=== PATIENT | male | born 1950 | race Caucasian/White ===

== ENCOUNTER 2021-02-02 14:59 | Inpatient (IN) | payer MEDICARE, BC ==
[~2021-02-02] VITALS: Ht 182.9 cm; Wt 72.1 kg
[2021-02-02] MEDS ORDERED: ACET-2154 PO (15:16)
[2021-02-02] MEDS ORDERED: BUSP15TA3 PO (15:16)
[2021-02-02] MEDS ORDERED: ALPR0.5T8 PO (15:16)
[2021-02-02] MEDS ORDERED: ESCI20TA PO (15:16)
[2021-02-02] MEDS ORDERED: ONDA4TAB5 PO (15:16)
[2021-02-02] MEDS ORDERED: MAG30ORA PO (15:16)
[2021-02-02] MEDS ORDERED: LISI10TA29 PO (15:16)
[2021-02-02] MEDS ORDERED: MAGN400O6 PO (15:16)
[2021-02-02] MEDS ORDERED: ALBU8.5H8 IH (15:16)
[2021-02-02] MEDS ORDERED: FLUT16SP16 EA NOSTRIL (15:16)
[2021-02-02] MEDS ORDERED: DOCU-141 PO (15:16)
[2021-02-02] MEDS ORDERED: OLAN2.5T3 PO (15:16)
--- NOTE | 2021-02-02 15:30 | NUR ---
patient was seen by MD. He is awake and alert. He is sitting up eating a sandwich. Covid swab sent to lab
[2021-02-02 15:43] LABS: BASOPHILS # (AUTO) 0.1 K/uL (0.0-8.0); BASOPHILS % (AUTO) 0.8 % (0.0-2.0); EOSINOPHILS # (AUTO) 0.3 K/uL (0.0-0.7); EOSINOPHILS % (AUTO) 4.2 % (0.0-7.0); HEMATOCRIT 40.5 % (36.7-47.1); HEMOGLOBIN 13.7 g/dL (12.5-16.3); LYMPHOCYTES # (AUTO) 1.7 K/uL (20.0-40.0); LYMPHOCYTES % (AUTO) 26.6 % (20.5-51.5); MEAN CORPUSCULAR HGB CONC 34 g/dL (32.5-36.3); MEAN CORPUSCULAR VOLUME 88.5 fL (73.0-96.2); MONOCYTES # (AUTO) 0.6 K/uL (2.0-10.0); MONOCYTES % (AUTO) 9.3 % (0.0-11.0); NEUTROPHILS # (AUTO) 3.8 K/uL (1.8-8.9); NEUTROPHILS % (AUTO) 59.1 % (38.5-71.5); PLATELET COUNT (AUTO) 273 K/uL (152-348); RED BLOOD CELL COUNT(AUTO) 4.58 MIL/uL (4.06-5.63); WHITE BLOOD COUNT (AUTO) 6.5 K/uL (3.6-10.2)
[2021-02-02 15:48] LABS: CARBON DIOXIDE 30 mmol/L (21-32); CHLORIDE 101 mmol/L (98-107); CREATININE 0.9 mg/dL (0.6-1.3); GLUCOSE 106 mg/dL (74-106); POTASSIUM 4.2 mmol/L (3.5-5.1); UREA NITROGEN, BLOOD 13 mg/dL (7-18)
[2021-02-02 15:53] LABS: ETHANOL < 3 MG/DL (0-0)
[2021-02-02 15:54] LABS: ALANINE AMINOTRANSFERASE 12 U/L (16-63); ALKALINE PHOSPHATASE 76 U/L (50-136); ASPARTATE AMINOTRANSFERASE 8 U/L (15-37); BILIRUBIN,DIRECT 0.1 mg/dL (0.0-0.2); BILIRUBIN,TOTAL 0.3 mg/dL (0.2-1.0); TOTAL PROTEIN, SERUM 6.9 g/dL (6.4-8.2)
[2021-02-02 15:56] LABS: ACETAMINOPHEN < 2.0 ug/mL (10-30)
[2021-02-02 16:00] VITALS: BP 111/65
--- NOTE | 2021-02-02 16:30 | NUR ---
Art from Crisis team for evaluation of patient
--- NOTE | 2021-02-02 17:17 | NUR ---
Hand off report given to William OCAMPO. Patient is aware of pending admission to hospital
[2021-02-02] MEDS ORDERED: BLOOD SUGAR DIAGNOSTIC 1 EACH STRIP VI ONE (18:30)
[2021-02-02] MEDS ORDERED: TEMAZEPAM 7.5 MG CAPSULE PO PRN (18:30)
[2021-02-02] MEDS ORDERED: MAG HYDROX/AL HYDROX/SIMETH 30 ML LIQUID UDC PO PRN ×2 (18:30→20:00)
[2021-02-02] MEDS ORDERED: ACETAMINOPHEN 325 MG TABLET PO PRN ×2 (18:30→20:00)
[2021-02-02] MEDS ORDERED: MAGNESIUM HYDROXIDE 30 ML LIQUID UDC PO PRN ×2 (18:30→20:00)
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
[2021-02-02] MEDS ORDERED: ALBUTEROL SULFATE 8 GM HFA.AER.AD IH PRN (20:00)
[2021-02-02] MEDS ORDERED: ONDANSETRON HCL 4 MG TABLET PO PRN (20:00)
[2021-02-02] MEDS: LORAZEPAM 0.5 MG TABLET PO PRN (20:13)
[2021-02-02] MEDS ORDERED: ALBUTEROL SULFATE 2.5 MG/3 ML NEBU INH PRN (20:30)
[2021-02-02 20:48] VITALS: BP 107/69
--- NOTE | 2021-02-03 06:31 | NUR ---
Patient slept a total of 7.30 hours.
[2021-02-03 07:30] VITALS: BP 110/67
[2021-02-03] MEDS: DOCUSATE SODIUM 100 MG CAPSULE PO SCH (08:57)
[2021-02-03] MEDS: LISINOPRIL 10 MG TABLET PO SCH (08:57)
[2021-02-03] MEDS: LORAZEPAM 0.5 MG TABLET PO PRN (09:01)
[2021-02-03 16:00] VITALS: BP 99/57
[2021-02-03] MEDS: GLUCERNA SHAKE VANILLA 237 ML CAN PO SCH (16:12)
[2021-02-03] MEDS ORDERED: GLUCERNA SHAKE VANILLA 237 ML CAN PO SCH (17:00)
[2021-02-03 20:00] VITALS: BP 93/56
--- NOTE | 2021-02-04 06:03 | NUR ---
Received patient at the beginning of the shift complaining about everything. This ticket writer attempted to address some of his issues but the patient was noncompliant and not willing to even try. PRN medications were offered and refused. Some delusional and paranoid statements were made to the ticket writer r/e the situation of being a patient here. Total sleep hour were 8.45. Continuing to monitor the patient for SI and unpredictable behaviors.
[2021-02-04] MEDS: LISINOPRIL 10 MG TABLET PO SCH (08:25)
[2021-02-04] MEDS: DOCUSATE SODIUM 100 MG CAPSULE PO SCH (08:25)
[2021-02-04] MEDS: GLUCERNA SHAKE VANILLA 237 ML CAN PO SCH ×2 (08:26→17:35)
[2021-02-04] MEDS: LORAZEPAM 0.5 MG TABLET PO PRN ×2 (08:29→23:36)
[2021-02-04 08:30] VITALS: BP 99/61
--- NOTE | 2021-02-04 08:51 | NUR ---
Received pt. in bed, AAOx4. vitals stable no c/of pain, compliant with medications and nursing care. Patient seen by public relations studies director and questioned why his not on antipsychotics. Pt. educated by public relations studies director. Will continue with care plan.
[2021-02-04] MEDS ORDERED: INSULIN REGULAR, HUMAN 300 UNIT/3 ML VIAL SQ PRN (10:45)
[2021-02-04] MEDS ORDERED: DEXTROSE 50% 50 ML DISP.SYRIN IV PRN (10:45)
[2021-02-04] MEDS: BLOOD SUGAR DIAGNOSTIC 1 EACH STRIP VI SCH ×3 (11:35→20:32)
[2021-02-04 20:23] VITALS: BP 101/64
[2021-02-04] MEDS: OLANZAPINE 5 MG TABLET PO SCH (23:36)
--- NOTE | 2021-02-05 05:39 | NUR ---
This patient continues to be angry and irritate with most aspects of this unit. This includes the bed, the food , the doctors, the unit rules and the other patients. The psychiatrist saw the patient and ordered medications. This patient is paranoid and has delusions . Total sleep hours were 6.30 and the patient is refusing to take a shower today.Despite multiple attempts to get to the root of the anger and discontent , this health technical writer was unsuccessful. Continuing with the plan of care. Will endorse to the oncoming shift.
[2021-02-05] MEDS: BLOOD SUGAR DIAGNOSTIC 1 EACH STRIP VI SCH ×4 (06:25→21:36)
[2021-02-05 07:30] VITALS: BP 102/62
[2021-02-05] MEDS ORDERED: ESCITALOPRAM OXALATE 10 MG TABLET PO SCH (09:00)
[2021-02-05] MEDS ORDERED: BISACODYL 5 MG TABLET.DR PO ONE (09:15)
[2021-02-05] MEDS ORDERED: FLEET ENEMA 133 ML BOTTLE RC PRN (09:15)
[2021-02-05] MEDS: LISINOPRIL 10 MG TABLET PO SCH (09:23)
[2021-02-05] MEDS: DOCUSATE SODIUM 100 MG CAPSULE PO SCH (09:23)
[2021-02-05] MEDS: OLANZAPINE 5 MG TABLET PO SCH (09:23)
[2021-02-05] MEDS: GLUCERNA SHAKE VANILLA 237 ML CAN PO SCH ×2 (09:24→17:07)
[2021-02-05] MEDS ORDERED: risperiDONE 1 MG TABLET PO SCH (10:00)
--- NOTE | 2021-02-05 11:18 | NUR ---
Initial Discharge Plan: Patient currently resides at [facility] ([phone]). Patient will return back to his SNF upon dc. Patient does not have any family at this time. This SW will work with the MD and treatment team to coordinate discharge plan.
--- NOTE | 2021-02-05 11:18 | NUR ---
Firearms Report: Fast Food Crew Lead completed and submitted a [employer] firearms report for 5150 grave disability certification. A copy of report has been placed in patient chart.
[2021-02-05] MEDS: risperiDONE 0.5 MG TABLET PO SCH (11:49)
--- NOTE | 2021-02-05 12:14 | NUR ---
SNF Contact: This SW spoke with Amber vences from [facility] ([phone]) who stated pt is welcomed back upon discharge.
--- NOTE | 2021-02-05 15:00 | NUR ---
SW Family Contact: This SW contacted patient's brother Jose M ([phone]) and left a detailed voicemail in regards to patient's discharge and treatment plan.
[2021-02-05 15:08] VITALS: BP 90/46
--- NOTE | 2021-02-05 15:28 | NUR ---
SW Individual Therapy: reinforcing iron worker helper met with patient for brief counseling to help address patients presenting problem paranoid thought content. Patient appeared paranoid and delusional stating that "I need shock therapy". Patient was not cooperative and was not listening while this SW was conducting therapy.
[2021-02-05] MEDS ORDERED: OLANZAPINE 2.5 MG TABLET PO SCH (17:00)
[2021-02-05] MEDS ORDERED: OLANZAPINE 5 MG TABLET PO SCH (17:00)
[2021-02-05] MEDS: risperiDONE 1 MG TABLET PO SCH (20:28)
[2021-02-05 20:31] VITALS: BP 98/56
--- NOTE | 2021-02-06 06:26 | NUR ---
PATIENT AWAKE IN BED. SLEPT WELL, 7.5HOURS. PT DID NOT HAVE BM THROUGHOUT THE NIGHT, WAS GIVEN DULCOLAX 2 TABS YESTERDAY. PATIENT REFUSED FOR PRN ENEMA. HIP HOP PERFORMERS NOTIFIED.
[2021-02-06] MEDS: BLOOD SUGAR DIAGNOSTIC 1 EACH STRIP VI SCH ×4 (06:31→20:25)
[2021-02-06 07:30] VITALS: BP 99/66
[2021-02-06] MEDS: DOCUSATE SODIUM 100 MG CAPSULE PO SCH (08:35)
[2021-02-06] MEDS: risperiDONE 0.5 MG TABLET PO SCH ×3 (08:35→17:33)
[2021-02-06] MEDS: LISINOPRIL 10 MG TABLET PO SCH (08:36)
[2021-02-06] MEDS: GLUCERNA SHAKE VANILLA 237 ML CAN PO SCH ×2 (08:36→17:33)
[2021-02-06] MEDS: DIVALPROEX 250 MG TABLET.DR PO SCH ×2 (09:11→17:29)
[2021-02-06] MEDS: BENZTROPINE MESYLATE 0.5 MG TABLET PO SCH ×2 (13:12→20:35)
[2021-02-06] MEDS: LORAZEPAM 0.5 MG TABLET PO PRN (14:47)
[2021-02-06 15:28] VITALS: BP 109/59
[2021-02-06 20:33] VITALS: BP 99/65
[2021-02-06] MEDS: risperiDONE 1 MG TABLET PO SCH (20:35)
[2021-02-07] MEDS: BLOOD SUGAR DIAGNOSTIC 1 EACH STRIP VI SCH ×6 (06:34→23:18)
[2021-02-07 07:30] VITALS: BP 93/55
[2021-02-07] MEDS: BENZTROPINE MESYLATE 0.5 MG TABLET PO SCH ×2 (08:00→20:22)
[2021-02-07] MEDS: risperiDONE 0.5 MG TABLET PO SCH (08:00)
[2021-02-07] MEDS: LISINOPRIL 10 MG TABLET PO SCH (08:00)
[2021-02-07] MEDS: DIVALPROEX 250 MG TABLET.DR PO SCH ×3 (08:00→16:54)
[2021-02-07] MEDS: GLUCERNA SHAKE VANILLA 237 ML CAN PO SCH ×2 (08:00→17:23)
[2021-02-07] MEDS: DOCUSATE SODIUM 100 MG CAPSULE PO SCH (08:00)
--- NOTE | 2021-02-07 12:30 | NUR ---
LUCY Individual Therapy: warehouse assembly worker met with patient for brief counseling to help address patient's presenting problem paranoid thought content. Patient appeared paranoid and delusional stating that he has cancer. Patient is fixated on different delusions everyday. LUCY unable to conduct therapy at this time.
--- NOTE | 2021-02-07 14:21 | NUR ---
LUCY Individual Therapy: freezing room worker met with patient for brief counseling to help address patients presenting problem paranoid thought content. Patient appeared paranoid and delusional stating that "the mattress on my bed is not fitted, can you give me a screw auto haulaway driver so I can fix it". Patient was fixated on her bed and was unable to have a proper conversation at this time due to her paranoia. LUCY unable to conduct therapy at this time. Addendum: 02/07/21 at 1423 by LUCY FOWLER Wrong patient
--- NOTE | 2021-02-07 14:23 | NUR ---
LUCY Individual Therapy: plant and equipment worker met with patient for brief counseling to help address patients presenting problem paranoid thought content. Patient appeared withdrawn and isolative. Patient did not want to engage or have a conversation at this time. Patient wanted to sleep. Unable to conduct therapy at this time.
--- NOTE | 2021-02-07 14:26 | NUR ---
SW Family Contact: This SW attempted to call patient's brother Jose M second time ([phone]) to discuss treatment and discharge plan. This SW left a detailed voicemail and requested for him to contact this SW directly if he had questions about discharge and facility.
[2021-02-07 16:00] VITALS: BP 98/64
[2021-02-07] MEDS: risperiDONE 1 MG TABLET PO SCH (16:54)
--- NOTE | 2021-02-07 16:57 | NUR ---
patient refused blood sugar check. patient states that he would "rather wait for the night check" and he states that "4 times a day is too much". patient provided with education about importance of blood sugar monitoring for diabetes management, but he continues to refuse. patient is resting quietly in his assigned bed. he is showing no s/s of hypo/hyperglycemia.
[2021-02-07] MEDS ORDERED: risperiDONE 0.5 MG TABLET PO SCH (17:00)
[2021-02-07] MEDS ORDERED: risperiDONE 2 MG TABLET PO SCH (21:00)
[2021-02-07] MEDS ORDERED: risperiDONE 1 MG TABLET PO SCH (21:00)
[2021-02-07 23:09] VITALS: BP 103/78
--- NOTE | 2021-02-08 04:05 | NUR ---
SNF Referral: This SW faxed patient's clinicals to gonzalez Anderson from [facility] ([phone]) stated they cannot accept pt due to behavioral issue.
--- NOTE | 2021-02-08 06:32 | NUR ---
GPS: Pt.slept for 7.45 last night. Refused blood sugar check at this time despite explanation of risks vs benefits x3. No signs/symptoms of glycemic reactions noted. Re-directed and re-assured prn. Denies AH/VH. Will continue to monitor.
[2021-02-08] MEDS: BLOOD SUGAR DIAGNOSTIC 1 EACH STRIP VI SCH ×2 (06:39→11:42)
[2021-02-08 07:30] VITALS: BP 93/55
[2021-02-08] MEDS: risperiDONE 1 MG TABLET PO SCH (08:43)
[2021-02-08] MEDS: BENZTROPINE MESYLATE 0.5 MG TABLET PO SCH (08:43)
[2021-02-08] MEDS: DOCUSATE SODIUM 100 MG CAPSULE PO SCH (08:43)
[2021-02-08] MEDS: DIVALPROEX 250 MG TABLET.DR PO SCH ×3 (08:43→16:48)
[2021-02-08] MEDS: LISINOPRIL 10 MG TABLET PO SCH (08:44)
[2021-02-08] MEDS: GLUCERNA SHAKE VANILLA 237 ML CAN PO SCH ×2 (08:44→17:51)
--- NOTE | 2021-02-08 10:50 | NUR ---
SNF Referral: This SW faxed patient's clinicals to Nae Black from [facility] ([phone]) for possible placement option.
--- NOTE | 2021-02-08 11:48 | NUR ---
Court Hearing: Patient's court hearing for 5240 was today and it was upheld for GD.
--- NOTE | 2021-02-08 11:56 | NUR ---
SNF Contact: This SW received a call from Skyla Black from [facility] ([phone]) who stated that they cannot accept pt due to behavioral issues.
--- NOTE | 2021-02-08 12:21 | NUR ---
SNF Referral: This SW faxed patient's clinicals to Kathleen Black from [facility] ([phone]) for possible placement option.
--- NOTE | 2021-02-08 12:27 | NUR ---
SNF Referral: This SW faxed patient's clinicals to gonzalez Anderson from [facility] ([phone]) for possible placement option.
[2021-02-08] MEDS: FLUOXETINE HCL 20 MG CAPSULE PO SCH (13:29)
--- NOTE | 2021-02-08 14:43 | NUR ---
SNF Contact: This SW spoke with Kathleen Black from [facility] ([phone]) who stated that they cannot accept pt because of his past suicide attempt and they stated that pt does not have medicare days.
[2021-02-08 16:42] VITALS: BP 90/59
[2021-02-08] MEDS: ARIPIPRAZOLE 5 MG TABLET PO SCH ×2 (16:44→20:32)
[2021-02-08 20:17] VITALS: BP 94/55
--- NOTE | 2021-02-08 21:41 | NUR ---
awake alert and oriented x4 Patient depressed. Compliant with meds. Tolerated po meds well. No acute distress noted. VSS. Attended to needs. Continent of bowel and bladder. Will monitor patient. No signs of agitation nor any behavioral issues noted.
[2021-02-09 07:30] VITALS: BP 93/52
[2021-02-09] MEDS: ARIPIPRAZOLE 5 MG TABLET PO SCH ×3 (08:19→20:33)
[2021-02-09] MEDS: DOCUSATE SODIUM 100 MG CAPSULE PO SCH (08:19)
[2021-02-09] MEDS: DIVALPROEX 250 MG TABLET.DR PO SCH ×3 (08:19→16:34)
[2021-02-09] MEDS: LISINOPRIL 10 MG TABLET PO SCH (08:20)
[2021-02-09] MEDS: GLUCERNA SHAKE VANILLA 237 ML CAN PO SCH ×2 (08:20→16:34)
--- NOTE | 2021-02-09 09:54 | NUR ---
seen and examined by Dr. Jung , with orders to monitor patients BP , patient BP was usually below normal with last bp taken at 93/54, MD made aware, will continue follow up
--- NOTE | 2021-02-09 11:02 | NUR ---
SW Family Contact: This SW attempted to call patient's brother Jose M ([phone]) and left a detailed voicemail that patient is not accepted at any other nursing facility due to behavioral issues. This SW reported that this public relations writer faxed patient's clinicals to three nursing facilities; [facility], [facility], and [facility] have all denied him due to behavioral issues. This SW stated that pt was at [facility] prior to admission here at [facility] and once stable pt will return back.
--- NOTE | 2021-02-09 11:41 | NUR ---
SW Family Contact: This SW attempted to call patient's brother Jose M ([phone]), however, it goes to straight voicemail every time this SW attempts to contact. This SW has left him multiple voicemails.
[2021-02-09] MEDS: FLUOXETINE HCL 20 MG CAPSULE PO SCH (12:03)
--- NOTE | 2021-02-09 12:16 | NUR ---
assisted patient to get cellphone number from valuables, patient able to get the number that he needed and return valuables to the safe
--- NOTE | 2021-02-09 12:18 | NUR ---
patient last blood pressure at 1200 is at 125/75
[2021-02-09 12:19] VITALS: BP 125/75
--- NOTE | 2021-02-09 14:29 | NUR ---
LUCY Individual Therapy: pull worker met with patient for brief counseling to help address patients presenting problem paranoid thought content. Patient appeared very paranoid and delusional. He was stating that he needs to go to the bank and that he needs to take his money out. Patient was unable to focus and he kept changing subjects. Patient kept stating that he needs "shock therapy". SW unable to conduct therapy at this time due to his paranoia.
[2021-02-09 16:52] VITALS: BP 110/64
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
[2021-02-09 20:15] VITALS: BP 101/57
[2021-02-10 00:39] VITALS: BP 103/64
[2021-02-10 04:00] VITALS: BP 101/64
--- NOTE | 2021-02-10 05:48 | NUR ---
GPS: Remain calm and cooperative with meds and care. Pt.slept for 6 hrs through the night. Re-directed and re-assured prn. Denies AH/VH. resting in bed comfortably. continue plan of care.Will continue to monitor.
[2021-02-10] MEDS: DIVALPROEX 250 MG TABLET.DR PO SCH ×3 (08:13→20:10)
[2021-02-10] MEDS: DOCUSATE SODIUM 100 MG CAPSULE PO SCH (08:13)
[2021-02-10] MEDS: ARIPIPRAZOLE 5 MG TABLET PO SCH ×3 (08:13→16:54)
[2021-02-10 08:29] VITALS: BP 101/63
[2021-02-10] MEDS: LISINOPRIL 10 MG TABLET PO SCH (08:44)
[2021-02-10] MEDS: GLUCERNA SHAKE VANILLA 237 ML CAN PO SCH ×2 (08:44→16:54)
[2021-02-10] MEDS: FLUOXETINE HCL 20 MG CAPSULE PO SCH (12:01)
--- NOTE | 2021-02-10 13:32 | NUR ---
Received patient AOx3, patient calm and cooperative, redirectable, compliant with medication,, patient delusional and paranoid, mentally preoccupied patient has constant anxiety and delusional thoughts of somebody will harm him , assisted with ADL, denies SI and HI, patient isolative , monitored [id number] for safety and elopement risk, no sign of distress at this time
[2021-02-10] MEDS: LORAZEPAM 0.5 MG TABLET PO PRN (14:07)
[2021-02-10 16:19] VITALS: BP 108/63
[2021-02-10 20:00] VITALS: BP 102/69
[2021-02-10] MEDS: ARIPIPRAZOLE 10 MG TABLET PO SCH (20:02)
--- NOTE | 2021-02-10 20:10 | NUR ---
patient refused Depakote 250 mg po.
[2021-02-10 23:56] VITALS: BP 94/60
--- NOTE | 2021-02-11 06:03 | NUR ---
GPS: Remain calm and cooperative with meds and care. Pt.slept for 4 hrs through the night After given restoril 7.5 mg po given for sleep. took shower this morning. Re-directed and re-assured prn. Denies AH/VH. resting in bed comfortably. continue plan of care.Will continue to monitor.
[2021-02-11 07:30] VITALS: BP 113/71
[2021-02-11] MEDS: ARIPIPRAZOLE 5 MG TABLET PO SCH ×3 (08:11→17:20)
[2021-02-11] MEDS: DOCUSATE SODIUM 100 MG CAPSULE PO SCH (08:12)
[2021-02-11] MEDS: DIVALPROEX 250 MG TABLET.DR PO SCH ×2 (08:12→21:10)
[2021-02-11] MEDS: LISINOPRIL 10 MG TABLET PO SCH (08:13)
[2021-02-11] MEDS: GLUCERNA SHAKE VANILLA 237 ML CAN PO SCH ×2 (08:14→17:21)
[2021-02-11] MEDS: FLUOXETINE HCL 20 MG CAPSULE PO SCH (12:17)
[2021-02-11 15:15] VITALS: BP 91/46
--- NOTE | 2021-02-11 18:37 | NUR ---
received pt compliant with medications.guarded isolative and withdrawn No aggressive behavior noted. re-directed as needed. Denies AH/VH when asked. Safe environment provided.
[2021-02-11 20:20] VITALS: BP 112/68
--- NOTE | 2021-02-11 20:30 | NUR ---
RECEIVED PATIENT IN HIS ROOM IN BED SLEEPING, BUT EASILY AROUSABLE. HE IS NOTED A/O X 2. CONTINUE WITHDRAWN AND ISOLATIVE. DENIED SI/HI/VH/AH, HE IS ABLE TO VERBALLY CFS. SAFETY AND FALL PRECAUTION IN PLACE. V/S STABLE. HE IS REASSURED FOR HIS SAFETY. WILL CONTINUE TO MONITOR.
[2021-02-11] MEDS: ARIPIPRAZOLE 10 MG TABLET PO SCH (21:10)
[2021-02-12 07:30] VITALS: BP 91/55
[2021-02-12] MEDS: ARIPIPRAZOLE 5 MG TABLET PO SCH ×3 (08:25→17:31)
[2021-02-12] MEDS: DOCUSATE SODIUM 100 MG CAPSULE PO SCH (08:25)
[2021-02-12] MEDS: LISINOPRIL 10 MG TABLET PO SCH (08:26)
[2021-02-12] MEDS: GLUCERNA SHAKE VANILLA 237 ML CAN PO SCH ×2 (08:27→17:27)
--- NOTE | 2021-02-12 08:45 | NUR ---
pt alert and oriented x 3. Pt ambulatory with good gait. Pt cooperative on taking his pills. Pt denies any SI.
--- NOTE | 2021-02-12 09:00 | NUR ---
Pt refused blood draw ordered by . Explained to pt purpose of the blood draw but pt insist on refusing.
[2021-02-12] MEDS: FLUOXETINE HCL 20 MG CAPSULE PO SCH (12:43)
[2021-02-12 15:18] VITALS: BP 96/54
--- NOTE | 2021-02-12 16:00 | NUR ---
Noticed pt withdrawn and very quiet and like to keep to himself. Did not wanna interact with any other patients even when approached.
--- NOTE | 2021-02-12 19:57 | NUR ---
RECEIVED PATIENT IN HIS ROOM IN BED. HE IS NOTED AWAKE A/O X 3. DEREJE TO VERBALIZED FEELINGS. HE APPEARS DEPRESSED, CONTINUE ISOLATIVE AND WITHDRAWN; DELUSIONAL THINKING GUARDED AT TIME. HOWEVER, HE DENIED SI/HI/VH/AH, HE IS ABLE TO VERBALLY CFS. PATIENT STATED, "I DON'T WANT TO HURT MYSELF OR , I AM JUST TIRED OF BEING HERE AND TAKING MEDICATIONS THAT MAKE ME SICK AND THE DOCTOR DOES NOT CARE". PATIENT WAS REASSURED AND REDIRECTED. TEACHING WAS PROVIDED ABOUT HIS MEDICATION REGIMENT. PATIENT WAS ALSO REASSURED FOR HIS SAFETY. V/S STABLE AT THIS TIME. SAFETY AND FALL PRECAUTION IN PLACE. PATIENT WAS GIVEN PO FLUIDS AND SNACKS. WILL CONTINUE TO MONITOR.
[2021-02-12 20:23] VITALS: BP 110/69
[2021-02-12] MEDS: DIVALPROEX 250 MG TABLET.DR PO SCH (20:39)
[2021-02-12] MEDS: ARIPIPRAZOLE 10 MG TABLET PO SCH ×2 (20:40→21:00)
--- NOTE | 2021-02-12 22:15 | NUR ---
patient refused Abilify 15mg PO QHS. he stated, "I don't want to take that medication; it makes me sick. I want to see another doctor". patient was informed of the importance to comply with medication regiment to improved his condition, yet refused. Will continue to monitor.
[2021-02-13 07:05] LABS: BASOPHILS # (AUTO) 0.1 K/uL (0.0-8.0); BASOPHILS % (AUTO) 0.6 % (0.0-2.0); EOSINOPHILS # (AUTO) 0.2 K/uL (0.0-0.7); EOSINOPHILS % (AUTO) 1.8 % (0.0-7.0); HEMOGLOBIN 13.2 g/dL (12.5-16.3); LYMPHOCYTES # (AUTO) 1.8 K/uL (20.0-40.0); LYMPHOCYTES % (AUTO) 20.7 % (20.5-51.5); MEAN CORPUSCULAR HEMOGLOBIN 29.9 uug (23.8-33.4); MEAN CORPUSCULAR HGB CONC 33 g/dL (32.5-36.3); MEAN CORPUSCULAR VOLUME 90.5 fL (73.0-96.2); MONOCYTES # (AUTO) 0.5 K/uL (2.0-10.0); MONOCYTES % (AUTO) 6.4 % (0.0-11.0); NEUTROPHILS # (AUTO) 5.9 K/uL (1.8-8.9); NEUTROPHILS % (AUTO) 70.5 % (38.5-71.5); PLATELET COUNT (AUTO) 246 K/uL (152-348); RED BLOOD CELL COUNT(AUTO) 4.42 MIL/uL (4.06-5.63); WHITE BLOOD COUNT (AUTO) 8.5 K/uL (3.6-10.2)
[2021-02-13 08:00] LABS: BILIRUBIN,TOTAL 0.5 mg/dL (0.2-1.0); MAGNESIUM 2.4 mg/dL (1.8-2.4); POTASSIUM 3.9 mmol/L (3.5-5.1); TOTAL PROTEIN, SERUM 6.9 g/dL (6.4-8.2)
[2021-02-13] MEDS: ARIPIPRAZOLE 5 MG TABLET PO SCH ×3 (08:00→16:52)
[2021-02-13 08:30] VITALS: BP 96/58
[2021-02-13] MEDS: GLUCERNA SHAKE VANILLA 237 ML CAN PO SCH ×2 (08:53→16:52)
[2021-02-13] MEDS: LISINOPRIL 10 MG TABLET PO SCH (08:53)
[2021-02-13] MEDS: DOCUSATE SODIUM 100 MG CAPSULE PO SCH (08:53)
--- NOTE | 2021-02-13 09:00 | NUR ---
PT refused abilify explained to pt purpose of medications but pt continues to refuse meds. Pt states that the Abilify makes him "weak and foggy."
--- NOTE | 2021-02-13 11:20 | NUR ---
SNF Contact: This SW received a phone call from Valeriy Black from [facility] ([phone]) who stated they reconsidered pt and they are willing to accept pt.
--- NOTE | 2021-02-13 11:40 | NUR ---
SW Note: This SW discussed discharge plan and stated that he got accepted to [facility] and pt prefers to go here instead of going back to [facility].
--- NOTE | 2021-02-13 11:41 | NUR ---
SW Family Contact: This SW contacted patient's brother Jose M ([phone]) and discussed discharge plan. Jose M mentioned that he was in [place] and he reported that he resides in [place] and is unable to help him as much as he could. This SW stated that pt is accepted at [facility] and he is agreeable of going to this facility.
[2021-02-13] MEDS: FLUOXETINE HCL 20 MG CAPSULE PO SCH (12:23)
[2021-02-13] MEDS ORDERED: FLUOXETINE HCL 20 MG CAPSULE PO SCH (13:00)
--- NOTE | 2021-02-13 13:53 | NUR ---
SW Individual Therapy: sheet ironworker met with patient for brief counseling to help address patients presenting problem paranoid thought content. Patient continues to present paranoid. However, patient appears to be withdrawn and depressed. This SW encouraged pt to participate in group or to interact with peers. Patient stated "I will". Patient stated he would want to rest and did not want to conduct therapy at this time.
[2021-02-13 16:08] VITALS: BP 90/54
--- NOTE | 2021-02-13 18:51 | NUR ---
Pt did not take any of his abilify this shift. Pt denies any SI and c/o pain. Addendum: 02/13/21 at 1853 by MARITZA CAREY RN Pt denies any hallucinations and states that he is NOT hearing any voices.
[2021-02-13] MEDS ORDERED: DIVALPROEX 250 MG TABLET.DR PO SCH (21:00)
[2021-02-13] MEDS: ARIPIPRAZOLE 10 MG TABLET PO SCH (21:03)
[2021-02-13 21:22] VITALS: BP 95/56
--- NOTE | 2021-02-14 06:29 | NUR ---
Patient no episodes of combative behavior.Denies hearing voices and hallucination.Slept about 5.15 hours.
[2021-02-14 07:30] VITALS: BP 92/54
[2021-02-14] MEDS: LISINOPRIL 10 MG TABLET PO SCH (09:00)
[2021-02-14] MEDS: ARIPIPRAZOLE 5 MG TABLET PO SCH ×3 (09:05→16:53)
[2021-02-14] MEDS: DOCUSATE SODIUM 100 MG CAPSULE PO SCH (09:06)
[2021-02-14] MEDS: GLUCERNA SHAKE VANILLA 237 ML CAN PO SCH ×2 (09:14→18:36)
[2021-02-14] MEDS ORDERED: LYTES/YERBA SANTA 240 ML BOTTLE MM PRN (09:45)
[2021-02-14] MEDS ORDERED: BISACODYL 5 MG TABLET.DR PO PRN (11:15)
[2021-02-14] MEDS: FLUOXETINE HCL 20 MG CAPSULE PO SCH (12:34)
[2021-02-14] MEDS ORDERED: FLUOXETINE HCL 20 MG CAPSULE PO SCH (13:00)
--- NOTE | 2021-02-14 13:22 | NUR ---
LUCY Individual Therapy: environmental services worker met with patient for brief counseling to help address patients presenting problem paranoid thought content. Patient presented to be less depressed. Patient was withdrawn in his room and covered in his blankets. LUCY encouraged pt to participate and interact. Pt refused to interact at this time.
[2021-02-14 16:00] VITALS: BP 100/71
[2021-02-14 20:12] VITALS: BP 99/67
[2021-02-14 20:30] VITALS: BP 105/76
[2021-02-14] MEDS: ARIPIPRAZOLE 10 MG TABLET PO SCH (20:37)
[2021-02-14] MEDS: DIVALPROEX 250 MG TABLET.DR PO SCH (20:37)
[2021-02-14] MEDS ORDERED: DIVALPROEX 250 MG TABLET.DR PO SCH (21:00)
[2021-02-14] MEDS ORDERED: DIVALPROEX 500 MG TABLET.DR PO SCH ×2 (21:00)
--- NOTE | 2021-02-15 06:16 | NUR ---
GPS: Remain calm and cooperative with meds and care. Pt.slept for 5.45 hrs through the night. Re-directed and re-assured prn. Denies AH/VH. resting in bed comfortably. continue plan of care.Will continue to monitor.
[2021-02-15 07:30] VITALS: BP 91/50
[2021-02-15] MEDS: LISINOPRIL 10 MG TABLET PO SCH (09:00)
[2021-02-15] MEDS: DOCUSATE SODIUM 100 MG CAPSULE PO SCH (10:00)
[2021-02-15] MEDS: ARIPIPRAZOLE 5 MG TABLET PO SCH ×3 (10:00→17:53)
[2021-02-15] MEDS: GLUCERNA SHAKE VANILLA 237 ML CAN PO SCH ×2 (10:01→17:54)
[2021-02-15] MEDS: FLUOXETINE HCL 20 MG CAPSULE PO SCH (12:59)
[2021-02-15 16:00] VITALS: BP 101/47
[2021-02-15 20:26] VITALS: BP 102/63
[2021-02-15] MEDS: ARIPIPRAZOLE 10 MG TABLET PO SCH (21:22)
[2021-02-15] MEDS: DIVALPROEX 250 MG TABLET.DR PO SCH (21:23)
[2021-02-16 07:30] VITALS: BP 98/54
--- NOTE | 2021-02-16 08:09 | NUR ---
LUCY Note: Patient will be discharged to shelter facility, [facility] [address] [place] [address]; ([phone]) via ambulance transportation at 2:30PM. community placement worker spoke with Valeriy Black ([phone]), and he confirmed that patient will be accepted at their facility today. Patients brother Jose M ([phone]) is aware and agreeable with discharge. Patient is alert and oriented x2. Patient is not able to plan for self-care at this time but is willing to accept care provided for his at the facility. Patient denies suicidal or homicidal ideation. Patient is aware and agreeable with discharge plans. Patient presents with appropriate mood and congruent affect. Patient will follow-up with (Psychiatrist) Dr. Jung and (Bulk Plant Manager) Dr. Flores [facility]. Patient presented with euthymic mood and congruent affect. Addendum: 02/16/21 at 1119 by LUCY FOWLER Discharge canceled due to pt not being stable per doctor Jung
[2021-02-16] MEDS: LISINOPRIL 10 MG TABLET PO SCH (09:00)
[2021-02-16] MEDS: GLUCERNA SHAKE VANILLA 237 ML CAN PO SCH ×2 (09:00→17:00)
[2021-02-16] MEDS: DOCUSATE SODIUM 100 MG CAPSULE PO SCH (09:38)
[2021-02-16] MEDS: ARIPIPRAZOLE 5 MG TABLET PO SCH ×3 (09:38→17:06)
--- NOTE | 2021-02-16 11:27 | NUR ---
SW Family Contact: This SW contacted patient's brother Jose M ([phone]) and left a voicemail that pt's discharge is canceled due to pt not being stable.
[2021-02-16] MEDS: FLUOXETINE HCL 20 MG CAPSULE PO SCH (14:01)
[2021-02-16 16:00] VITALS: BP 96/56
--- NOTE | 2021-02-16 20:00 | NUR ---
received patient in his room in bed. he is noted sleeping but easily arousable. he is noted a/o x 3 able to verbalized feelings. he is noted with low mood, appears depressed, affect is irritable. patient denied SI/HI//AH he is able to verbally CFS. He stated, "I feel depressed, but i don't want to or hurt myself". "I don't like my doctor, i feel she doesn't listen to me". patient was reassured and redirected. long talk. he is reassured for his safety. v/s stable, safety vand fall precaution in place. will continue to monitor.
[2021-02-16 20:22] VITALS: BP 101/59
[2021-02-16] MEDS: ARIPIPRAZOLE 10 MG TABLET PO SCH (20:57)
[2021-02-16] MEDS: DIVALPROEX 250 MG TABLET.DR PO SCH (20:57)
--- NOTE | 2021-02-17 06:10 | NUR ---
Patient slept for approx 6.15 hrs through the night. patient is able to comply with medication regiment. he required dome redirections and reassurance. will continue to monitor.
[2021-02-17 07:39] LABS: BASOPHILS % (AUTO) 0.7 % (0.0-2.0); EOSINOPHILS # (AUTO) 0.1 K/uL (0.0-0.7); EOSINOPHILS % (AUTO) 2.2 % (0.0-7.0); HEMATOCRIT 36.2 % (36.7-47.1); HEMOGLOBIN 12.4 g/dL (12.5-16.3); LYMPHOCYTES # (AUTO) 1.2 K/uL (20.0-40.0); LYMPHOCYTES % (AUTO) 23.9 % (20.5-51.5); MEAN CORPUSCULAR HEMOGLOBIN 30.4 uug (23.8-33.4); MEAN CORPUSCULAR HGB CONC 34 g/dL (32.5-36.3); MEAN CORPUSCULAR VOLUME 88.9 fL (73.0-96.2); MONOCYTES # (AUTO) 0.4 K/uL (2.0-10.0); MONOCYTES % (AUTO) 7.1 % (0.0-11.0); NEUTROPHILS # (AUTO) 3.4 K/uL (1.8-8.9); NEUTROPHILS % (AUTO) 66.1 % (38.5-71.5); PLATELET COUNT (AUTO) 217 K/uL (152-348); RED BLOOD CELL COUNT(AUTO) 4.07 MIL/uL (4.06-5.63); WHITE BLOOD COUNT (AUTO) 5.2 K/uL (3.6-10.2)
[2021-02-17 07:54] LABS: BILIRUBIN,TOTAL 0.4 mg/dL (0.2-1.0); CREATININE 0.7 mg/dL (0.6-1.3)
[2021-02-17] MEDS: ARIPIPRAZOLE 5 MG TABLET PO SCH ×4 (08:20→16:19)
[2021-02-17] MEDS: DOCUSATE SODIUM 100 MG CAPSULE PO SCH (08:20)
[2021-02-17] MEDS: LISINOPRIL 10 MG TABLET PO SCH (08:21)
[2021-02-17] MEDS: GLUCERNA SHAKE VANILLA 237 ML CAN PO SCH ×2 (08:21→17:31)
[2021-02-17 08:24] VITALS: BP 98/59
[2021-02-17] MEDS: FLUOXETINE HCL 20 MG CAPSULE PO SCH ×2 (12:31→13:00)
[2021-02-17 17:16] VITALS: BP 100/61
--- NOTE | 2021-02-17 18:40 | NUR ---
Patient awake in bed. Calm and cooperative. no signs of acute distress. compliant with medications and care. Patient appears depressed but denies SI/ HI. Patient denies pain/ discomfort. Patient able to care for self, ambulatory. Frequent patient rounding for safety. Will endorse to incoming shift for continuity of care.
[2021-02-17] MEDS: LORAZEPAM 0.5 MG TABLET PO PRN (20:14)
--- NOTE | 2021-02-17 20:30 | NUR ---
RECEIVED PATIENT IN HIS ROOM IN BED. HE IS NOTED AWAKE A/O X 2. HE IS NOTED WITH LOW MOOD, BLUNTED AFFECT. CONTINUE ISOLATIVE TO HIS ROOM. HE COMES A TIME TO WALK THE HALLWAY. HE IS NOTED ANXIOUS, HE STATED, "I DON'T WANT TO TAKE MEDICATION, IT DOESN'T WORK ON ME. I AMD NOT DEPRESSED, I DON'T WANT OT , I DON'T WANT TO HURT MYSELF. I JUST FEEL ANXIOUS ALL THE TIME. I NEED MEDICATION FOR ANXIETY". PATIENT WAS REASSURED AND REDIRECTED. HE WAS ADVISED TO LET THE DOCTOR KNOW IN THE MORNING, ATIVAN 0.5MG PO PRN WAS GIVEN. PATIENT WAS REASSURED FOR HIS SAFETY. SAFETY AND FALL PRECAUTION IN PLACE. WILL CONTINUE TO [id number].
[2021-02-17] MEDS: ARIPIPRAZOLE 10 MG TABLET PO SCH (21:28)
[2021-02-17] MEDS: DIVALPROEX 250 MG TABLET.DR PO SCH (21:28)
[2021-02-17 21:57] VITALS: BP 106/55
[2021-02-18 07:30] VITALS: BP 114/70
[2021-02-18] MEDS: LISINOPRIL 10 MG TABLET PO SCH ×2 (08:47→09:55)
[2021-02-18] MEDS: ARIPIPRAZOLE 5 MG TABLET PO SCH ×3 (08:47→16:40)
[2021-02-18] MEDS: GLUCERNA SHAKE VANILLA 237 ML CAN PO SCH ×2 (08:47→17:34)
[2021-02-18] MEDS: DOCUSATE SODIUM 100 MG CAPSULE PO SCH (08:47)
[2021-02-18] MEDS: FLUOXETINE HCL 20 MG CAPSULE PO SCH (12:30)
[2021-02-18 16:00] VITALS: BP 103/57
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
[2021-02-18 20:06] VITALS: BP 93/55
--- NOTE | 2021-02-18 21:00 | NUR ---
RECEIVED PATIENT IN HIS ROOM IN BED SLEEPING, BUT EASILY AROUSABLE. PATIENT NOTED A/O X 2. HIS MOOD IS LOW, AFFECT IS BLUNTED. HE IS NOTED LESS SUSPICIOUS, LESS IRRITABLE. HE DENIED SI/HI//AH. HE IS ABLE TO VERBALLY CFS. SAFETY AND FALL PRECAUTION IN PLACE. HE IS REASSURED FOR HIS SAFETY. REMAINS COMPLIANT WITH MEDICATION REGIMENT DIET AND PLAN OF CARE. PO FLUIDS AND SNACKS WERE PROVIDE. WILL [id number] TO MONITOR,
[2021-02-18] MEDS: ARIPIPRAZOLE 10 MG TABLET PO SCH (21:13)
[2021-02-18] MEDS: DIVALPROEX 250 MG TABLET.DR PO SCH (21:13)
[2021-02-19 07:30] VITALS: BP 91/54
[2021-02-19] MEDS: ARIPIPRAZOLE 5 MG TABLET PO SCH ×3 (08:57→16:45)
[2021-02-19] MEDS: GLUCERNA SHAKE VANILLA 237 ML CAN PO SCH ×2 (08:57→16:45)
[2021-02-19] MEDS: DOCUSATE SODIUM 100 MG CAPSULE PO SCH (08:57)
--- NOTE | 2021-02-19 11:10 | NUR ---
SW Family Contact: This SW contacted patient's brother Jose M ([phone]) and left a voicemail that patient will be discharged 02/20/2021.
[2021-02-19] MEDS: FLUOXETINE HCL 20 MG CAPSULE PO SCH (12:59)
[2021-02-19 15:33] VITALS: BP 90/55
[2021-02-19] MEDS: ARIPIPRAZOLE 10 MG TABLET PO SCH (20:06)
[2021-02-19] MEDS: DIVALPROEX 250 MG TABLET.DR PO SCH (20:06)
[2021-02-19 20:12] VITALS: BP 84/55
--- NOTE | 2021-02-20 06:36 | NUR ---
GPS: Pt.slept for 7.30 last night. Remains anxious,withdrawn but denies wanting to hurt self. Re-assured prn. Safe environment provided. Will continue to monitor.
[2021-02-20 07:30] VITALS: BP 90/51
--- NOTE | 2021-02-20 08:01 | NUR ---
Discharge Note: Patient will be discharged to care home facility, [facility] [address] [place] [id number]; ([phone]) via ambulance transportation at 2:30PM. dairy farmworker spoke with Valeriy Black ([phone]), and he confirmed that patient will be accepted at their facility today. Patients brother Jose M ([phone]) is aware and agreeable with discharge. Patient is alert and oriented x2. Patient is not able to plan for self-care at this time but is willing to accept care provided for his at the facility. Patient denies suicidal or homicidal ideation. Patient is aware and agreeable with discharge plans. Patient presents with appropriate mood and congruent affect. Patient will follow-up with (Psychiatrist) Dr. Jung and (Hand Almond Blancher) Dr. Flores [facility]. Patient presented with euthymic mood and congruent affect.
[2021-02-20 09:00] VITALS: BP 90/51
[2021-02-20] MEDS: LISINOPRIL 10 MG TABLET PO SCH (09:00)
[2021-02-20] MEDS: ARIPIPRAZOLE 5 MG TABLET PO SCH ×2 (09:36→12:27)
[2021-02-20] MEDS: DOCUSATE SODIUM 100 MG CAPSULE PO SCH (09:36)
[2021-02-20] MEDS: GLUCERNA SHAKE VANILLA 237 ML CAN PO SCH (09:36)
[2021-02-20] MEDS: FLUOXETINE HCL 20 MG CAPSULE PO SCH (12:26)
--- NOTE | 2021-02-20 13:30 | NUR ---
GPS: Nursing Notes: Discharge Notes: Patient is awake and responding to his name, compliant with his medications, cooperative with nursing care, following staff directions, denies SI/HI, denies AH/VH, denies pain or discomfort, denies SOB, discharge to [facility] at [address] [place] [id number] . Patient's brother - Jose M informed of discharge by director of social work, report given to facility's nurse - DAMARIS Spears scientific laboratory supervisor, took all his belongings with him, transporter to facility via ambulance. Patient will follow-up with (Psychiatrist) Dr. Jung and (Freight Conductor) Dr. Flores at the facility for aftercare at the facility.
== END 2021-02-20 13:30 | DRG 885 ==
LOC: ER 14:59 → GPS 17:49
PROVIDERS: ADMIT Psychiatry & Neurology Psychiatry; ATTEND Nurse Practitioner Acute Care
DX: F25.0 Schizoaffective disorder, bipolar type (principal); F23 Brief psychotic disorder; J44.9 Chronic obstructive pulmonary disease, unspecified; E11.9 Type 2 diabetes mellitus without complications; F41.9 Anxiety disorder, unspecified; Z79.84 Long term (current) use of oral hypoglycemic drugs; Z91.5 Personal history of self-harm; F29 Unspecified psychosis not due to a substance or known physiological condition; F32.9 Major depressive disorder, single episode, unspecified; Z73.6 Limitation of activities due to disability; Z20.822 Contact with and (suspected) exposure to COVID-19
CPT/HCPCS: 36415; 70450; 71045; 80164; 83735; 85025; 93005; A4663; A9155; G0480; J1815; J3490; Q0162